=== PATIENT | male | born 2000 | race Two or more races ===

== ENCOUNTER 2021-10-16 21:18 | Emergency (ER) | payer MEDICAID, OTHER ==
[~2021-10-16] VITALS: Ht 182.9 cm; Wt 110.0 kg
[2021-10-16 22:32] VITALS: BP 111/61
[2021-10-17] MEDS ORDERED: CLIN300C8 PO (05:45)
[2021-10-17] MEDS ORDERED: AMOX500C2 PO (05:45)
== END 2021-10-17 01:14 | disposition left against medical advice (07) ==
LOC: ER 21:18
DX: M65.9 Synovitis and tenosynovitis, unspecified (principal)